=== PATIENT | male | born 1955 | race Caucasian/White ===

== ENCOUNTER → 2016-09-08 | Outpatient (CLI) | payer OTHER ==
[~2016-09-08] MED LIST: AMT100 PO; ASPCH81X PO; CALC-20 PO; CEVI30CA PO; CLON0.5T3 PO; CLX20 PO; DOXY100C76 PO; EPP3 IM; FLM4 PO; GLC/500 PO; HMLI SC; IBUP600T44 PO; INSDGI SC; LEVO25TA PO; LEVO50TA PO; LIDO5DIS10 TD; LSX20 PO; METH10TA2 PO; METH1INJ13 IV; METO-217 PO; MODA1TAB6 PO; OMEP40CA PO; OXGN; PENI500T2 PO; PNC/500 PO; POLY335025 PO; PREG1CAP70 PO; RXC30 PO; SULF800T23 PO; [UNRECOGNIZED DRUG - SUPPLY]
--- NOTE | 2016-09-08 15:26 | DIAGNOSTIC IMAGING REPORT ---
RIGHT FINGER(S) MIN 2 VIEWS ROUTINE CLINICAL HISTORY: R INDEX FINGER OPEN WOUND, HX OSTEOMYELITIS Right pain COMPARISON: None. DISCUSSION: Moderate soft tissue edema overlying the distal phalanx right second finger. There is no evidence for bony destructive process. Cortical margins appear to be intact. There is no evidence for soft tissue swelling. IMPRESSION: Soft tissue edema. No acute bony abnormality. Electronically signed by: Doug Messina M.D. 09/08/2016 3:25 PM Dictated Date/Time: 09/08/2016 3:24 PM
== END | disposition home or self-care (01) ==
LOC: C.RAD 15:01
PROVIDERS: ATTEND Emergency Medicine
DX: S61.200A Unspecified open wound of right index finger without damage to nail, initial encounter (principal); X58.XXXA Exposure to other specified factors, initial encounter; Z86.19 Personal history of other infectious and parasitic diseases

== ENCOUNTER 2016-11-01 08:29 | Emergency (ER) | payer OTHER ==
[~2016-11-01 08:29] MED LIST changes: -DOXY100C76 PO; -MODA1TAB6 PO; +MODA200T42 PO; -PENI500T2 PO
[2016-11-01 08:38] VITALS: BP 0/0; PULSE 0; O2SAT 0
--- NOTE | 2016-11-01 09:33 | EMERGENCY ROOM VISIT NOTE ---
History Report prepared by Ab: Emilia Loomis Under the Supervision of: Dr. Jersey Langley M.D. First contact with patient: 08:38 Chief Complaint: CARDIAC ARREST Stated Complaint: CARDIAC ARREST History of Present Illness The patient is a 61 year old male who presents to the Emergency Room with an episode of cardiac arrest starting prior to arrival. Per EMS, the patient fell this morning in the bathroom. They state that his partner told him to crawl over to the bed to get into it because he could not help him up. They state that his partner then heard a thud from the bedroom and found the patient lying on the floor. They state that that is when the ambulance was called and by the time they arrived, he was in cardiac arrest. The patient was bought in by EMS in asystole with down time for 45 minutes. He was given multiple doses of epinephrine following ACS protocol and my command. The patient remained in asystole during the event and on arrival. Source of History: EMS History Limited By: cardiac arrest Onset: SHUTDOWN PLANNER Position: other (global) Quality: other (global) Review of Systems Additional medical history unobtainable due to cardiopulmonary arrest. Past Medical & Surgical Medical Problems: (1) Anemia (2) Chronic back pain (3) Colonoscopy (4) Diabetes mellitus, type II (5) Diabetic neuropathy (6) Diabetic peripheral neuropathy associated with type 2 diabetes mellitus (7) Dry skin (8) Dyslipidemia (9) Foot drop (10) History of diabetic ulcer of foot (11) History of herpes zoster (12) History of osteomyelitis (13) Hypertension (14) Loss of sensation (15) Multiple sclerosis (16) Neuropathy (17) Reflux esophagitis (18) Sicca syndrome (19) Sleep apnea (20) Thalassemia (21) Urinary retention (22) Wound infection Surgical Problems: (1) Status post appendectomy (2) Status post colonoscopy (3) Status post implantation epidural catheter / pump (4) Status post implantation spinal cord stimulator (5) Status post lumbar surgery Family History Carotid artery stenosis FATHER Colon cancer GRANDFATHER Non-Hodgkin's lymphoma FATHER Prostate cancer UNCLE Skin cancer MOTHER Social History Smoking Status: Former Smoker Alcohol Use: none Drug Use: none Marital Status: in relationship Housing Status: lives with significant other Occupation Status: disabled Current/Historical Medications Scheduled Amitriptyline HCl (Amitriptyline HCl), 100 MG PO HS Aspirin (Aspirin Chewable), 81 MG PO DAILY Calcium Carbonate-Vitamin D (Calcium 600 + D), 1 TAB PO BID Cevimeline Hcl (Evoxac), 30 MG PO QID Citalopram (Citalopram Hydrobromide), 20 MG PO DAILY Clonazepam (Klonopin), 1 MG PO HS Epinephrine (Epipen *), 0.3 MG IM UD Furosemide (Lasix *), 20 MG PO DAILY Insulin Glargine (Lantus), 20 SC QAM Insulin Glargine (Lantus), 30 SC QPM Insulin Lispro (Humalog), SC WM Levothyroxine Sodium (Synthroid), 1 TAB PO DAILY Levothyroxine Sodium (Synthroid), 1 TAB PO DAILY Metformin Hcl (Glucophage), 500 MG PO QID Methylprednisolone Sod Succ (Solu-Medrol), 1 GM IV UD Metoprolol Succinate (Toprol Xl), 25 MG PO BID Modafinil (Provigil), 200 MG PO QAM Omeprazole (Prilosec), 20 MG PO BID Oxygen (Oxygen), 4 LITER NA HS Penicillin V Potassium (Penicillin V Potassium), 500 TAB PO TIDM Pregabalin (Lyrica), 150 MG PO TID Sulfa/Trimethoprim (Bactrim Ds 800MG/160MG), 1 TAB PO BID Tamsulosin Hcl (Flomax *), 0.8 MG PO DAILY Scheduled PRN Clonazepam (Klonopin), 0.5 MG PO AFTER SUPPER PRN for Pain Ibuprofen (Motrin), 600 MG PO QID PRN for Pain Lidocaine (Lidoderm Patch 5% Patch), 1 PATCH TD DAILY PRN for Pain Methadone Hcl (Dolophine), 10 MG PO Q8 PRN for Pain Oxycodone HCl (Oxycodone HCl), 30 MG PO Q4 PRN for SEVERE PAIN Polyethylene Glycol 3350 (Miralax), 1 SCOOPS PO DAILY PRN for Constipation Miscellaneous Medications [Synchromed Pump] Allergies Coded Allergies: BEE STING (Verified Allergy, Severe, RESP DIFFICULTY, 06/24/15) PER [facility] RECORD Adhesives (Verified Allergy, Mild, adhesive tape-skin irritation, 06/24/15 ) Glatiramer (Verified Allergy, Mild, RASH, 06/24/15) PER [facility] RECORD Penicillins (Verified Allergy, Mild, Patient reports he can now take PCN as an adult, 07/28/16) 07/29/16 Patient reports he grew out of this allergy and has taken PCN as an adult with no reaction. Can also take Amoxicillin Mannitol (Verified Allergy, Unknown, RASH, 06/24/15) PER [facility] [place] [place] RECORD Duloxetine (Verified Adverse Reaction, Unknown, DRY MOUTH, 06/24/15) Physical Exam Vital Signs Date Time Temp Pulse Resp B/P Pulse Ox O2 Delivery O2 Flow Rate FiO2 11/01/16 08:38 0 0 0/0 0 Room Air Physical Exam GENERAL: Patient was pale, cold, and unresponsive to painful stimuli, apneic and pulseless. SKIN: No erythema, cyanosis or rash. HEENT: Normal head, pupils were fixed and dilated. LUNGS: Patient was ventilating both lungs with michelle airway in place. HEART: No audible heart tones. ABDOMEN: No masses. Obese and soft. EXTREMITIES: No signs of trauma. NEUROLOGIC: Flaccid Medical Decision & Procedures ED Course 0829: Past medical records reviewed. The patient was evaluated in room A1. A complete history and physical examination was performed. 0853: I talked to the partner of the patient and discussed the physical examination findings. Medical Decision Differential diagnoses include cardiac arrest, asystole. The patient experienced a cardiac arrest at home and was found down on the bathroom floor. His partner found him and he was unresponsive at that time. Paramedics were called and they found him asystolic and apneic. I discussed care with the paramedics prior to the patient's arrival here. The patient's downtime prior to arrival here in the ED was approximate 45 minutes. On arrival here he remained apneic, pulseless cool to touch. I felt that the patient had no chance of resuscitation and therefore CPR was stopped. I discussed care with the partner. Impression Primary Impression: Cardiac arrest Additional Impression: Scribe Attestation The scribe's documentation has been prepared under my direction and personally reviewed by me in its entirety. I confirm that the note above accurately reflects all work, treatment, procedures, and medical decision making performed by me. Departure Information Dispostion Referrals Anand Mitchell MD (PCP) Patient Instructions My [facility] Problem Qualifiers
== END 2016-11-01 08:45 | disposition expired ==
LOC: EDBD 08:29 → C.ED 08:32 → C.EDA 08:45
DX: I46.9 Cardiac arrest, cause unspecified (principal); E11.43 Type 2 diabetes mellitus with diabetic autonomic (poly)neuropathy; M54.9 Dorsalgia, unspecified; G89.29 Other chronic pain; E78.5 Hyperlipidemia, unspecified; I10 Essential (primary) hypertension; G35 Multiple sclerosis; K21.9 Gastro-esophageal reflux disease without esophagitis; M35.00 Sjogren syndrome, unspecified; G47.30 Sleep apnea, unspecified; Z80.0 Family history of malignant neoplasm of digestive organs; Z80.42 Family history of malignant neoplasm of prostate; Z80.7 Family history of other malignant neoplasms of lymphoid, hematopoietic and related tissues; Z87.891 Personal history of nicotine dependence; Z79.82 Long term (current) use of aspirin; Z79.4 Long term (current) use of insulin; Z79.899 Other long term (current) drug therapy